=== PATIENT | female | born 1975 | race Caucasian/White ===

== ENCOUNTER 2024-07-03 09:55 | Observation (INO) | payer BC, SELFPAY ==
[~2024-07-03] VITALS: Ht 170.2 cm; Wt 72.4 kg
[2024-07-03] VITALS (7 sets, daily range): BP systolic 97–143; BP diastolic 79–104; TEMP 97–97.5; O2SAT 95–99
[~2024-07-03 09:55] MED LIST: ALLE180T33 PO; ARNICA PO; EMER1PAK30 PO; ESTROTEST PO; LR 1,000 ML IV SCH; MAGN200T PO; OMEP40CA4 PO; PHEN-239 PO; SUPER COLLAGEN PO; SUPETAB44 PO; SYNT88TA2 PO; [UNRECOGNIZED DRUG - CODE] PO; [UNRECOGNIZED DRUG - OTHER] PO; fentaNYL 100 MCG/2 ML INJECTION IV PRN
[2024-07-03] MEDS ORDERED: ONDANSETRON 4MG 2ML VIAL As Ordered ONE (10:14)
[2024-07-03] MEDS ORDERED: propofoL 200 MG/20 ML VIAL As Ordered ONE (10:14)
[2024-07-03] MEDS ORDERED: fentaNYL 250 MCG/5 ML INJECTION As Ordered ONE (10:14)
[2024-07-03] MEDS ORDERED: ACETAMINOPHEN 1000MG/100ML IV BAG As Ordered ONE (10:14)
[2024-07-03] MEDS ORDERED: LIDOCAINE 2% 100MG/5ML SDV (FOR ANES.) As Ordered ONE (10:14)
[2024-07-03] MEDS ORDERED: MIDAZOLAM INJ 2MG/2ML VIAL As Ordered ONE (10:14)
[2024-07-03] MEDS ORDERED: ROCURONIUM BROMIDE 50MG/5ML VIAL As Ordered ONE (10:14)
[2024-07-03] MEDS ORDERED: LR 1,000 ML IV SCH (10:50)
[2024-07-03] MEDS ORDERED: COLL1CAP PO (11:18)
[2024-07-03] MEDS ORDERED: ARNI20TI TD (11:18)
[2024-07-03] MEDS ORDERED: BACI1TAB20 PO (11:18)
[2024-07-03] MEDS ORDERED: MAGN400C2 PO (11:18)
[2024-07-03] MEDS ORDERED: HOME MED LIST COMPLETE! XX SCH (11:20)
[2024-07-03] MEDS: SCOPOLAMINE 1MG TRANSDERMAL PATCH TOP ONE (12:51)
[2024-07-03] MEDS: ceFAZolin SOD 2 GM in IV 1 EA IV ONE (13:36)
[2024-07-03] MEDS: HEPARIN SOD (PORCINE) 5000UNITS/ML 1ML VIAL/SYRINGE SQ ONE (13:37)
[2024-07-03] MEDS: EPINEPHrine INJ 1 MG/ML 1ML AMP As Ordered ONE (13:51)
[2024-07-03] MEDS: LIDOCAINE 1% MDV 20ML VIAL As Ordered ONE (13:51)
[2024-07-03] MEDS ORDERED: PHENYLephrine 500MCG 5ML (100MCG/ML) SYRINGE As Ordered ONE (13:54)
[2024-07-03] MEDS ORDERED: HYDROmorphone HCL 2MG/ML 1ML VIAL As Ordered ONE (14:31)
[2024-07-03] MEDS ORDERED: SUGAMMADEX SODIUM 500 MG/5 ML VIAL (BRIDION) As Ordered ONE (14:33)
[2024-07-03] MEDS ORDERED: LABETALOL 100MG/20ML VIAL As Ordered ONE (15:04)
[2024-07-03] MEDS: GENTAMICIN SULF 80MG/2ML VIAL As Ordered ONE (15:19)
[2024-07-03] MEDS ORDERED: dexmedeTOMIDine (4MCG/ML)200MCG/50ML BTL (PRECEDEX) As Ordered ONE (15:36)
[2024-07-03] MEDS ORDERED: traMADol 50 MG TAB PO PRN (18:00)
[2024-07-03] MEDS ORDERED: fentaNYL 100 MCG/2 ML INJECTION IV PRN (18:00)
[2024-07-03] MEDS ORDERED: PERCOCET 5MG/325MG TAB PO PRN (18:00)
[2024-07-03] MEDS ORDERED: MORPHINE 2 MG/ML 1ML VIAL IV PRN (18:00)
[2024-07-03] MEDS ORDERED: oxyCODONE 5MG TAB PO PRN (18:00)
[2024-07-03] MEDS: ONDANSETRON 4MG 2ML VIAL IV PRN (19:50)
[2024-07-03] MEDS: LR 1,000 ML IV SCH (20:17)
[2024-07-03] MEDS ORDERED: NALOXONE INJ 0.4MG/1ML VIAL As Ordered ONE (21:29)
[2024-07-03] MEDS: NALOXONE INJ 0.4MG/1ML VIAL IV STA (21:31)
[2024-07-03] MEDS: ceFAZolin SOD 2 GM in IV 1 EA IV SCH (22:27)
[2024-07-04] VITALS: BP 143/98; TEMP 96.8; O2SAT 97
[2024-07-04 01:00] VITALS: BP 144/98; TEMP 97.2; O2SAT 97
[2024-07-04 01:28] VITALS: BP 135/83; TEMP 98.3; O2SAT 97
[2024-07-04] MEDS: ONDANSETRON 4MG 2ML VIAL IV PRN (01:35)
[2024-07-04] MEDS: EXCEDRIN MIGRAINE TABLET PO ONE (02:45)
[2024-07-04 03:19] VITALS: BP 124/74; TEMP 98.1; O2SAT 100
[2024-07-04 05:47] LABS: HEMATOCRIT 40.4 % (36.0-47.0); HEMOGLOBIN 13.3 g/dl (12.0-15.5); MEAN CORPUSCULAR HGB CONC 32.9 g/dl (32.0-36.5); MEAN CORPUSCULAR VOLUME 94.2 fl (80.0-96.0); PLATELET COUNT, AUTOMATED 165 10^3/uL (150-450); RED BLOOD COUNT 4.29 10^6/uL (4.00-5.40); WHITE BLOOD COUNT 11.7 10^3/uL (4.0-10.0)
[2024-07-04 06:12] LABS: BLOOD UREA NITROGEN 15 MG/DL (9-23); CALCIUM LEVEL 7.4 MG/DL (8.5-10.1); CARBON DIOXIDE LEVEL 23 MMOL/L (20-31); CHLORIDE LEVEL 103 MMOL/L (98-107); CREATININE FOR GFR 0.83 MG/DL (0.55-1.30); GLOMERULAR FILTRATION RATE > 60.0 (>58); GLUCOSE, FASTING 122 MG/DL (60-100); POTASSIUM SERUM 3.8 MMOL/L (3.5-5.1); SODIUM LEVEL 138 MMOL/L (136-145)
[2024-07-04] MEDS: LEVOTHYROXINE 88MCG TABLET (0.088 MG) PO SCH (06:19)
[2024-07-04 08:20] VITALS: BP 129/72; TEMP 98.7; O2SAT 100
[2024-07-04] MEDS: FEXOFENADINE 60MG TAB PO SCH (08:53)
[2024-07-04] MEDS: ACETAMINOPHEN 325 MG TAB PO PRN (08:55)
[2024-07-04 11:49] VITALS: BP 128/69; TEMP 97.8; O2SAT 100
[2024-07-04] MEDS ORDERED: KETO10TAB PO (13:20)
[2024-07-04] MEDS ORDERED: OMEPRAZOLE 20MG CAP PO SCH (21:00)
== END 2024-07-04 14:21 | disposition home or self-care (01) ==
LOC: M SDC 09:55 → M RR INP 15:55 → M MS5PR 20:48 → M PCU 07-04 01:14
PROVIDERS: ADMIT Plastic Surgery Surgery of the Hand; ATTEND Plastic Surgery Surgery of the Hand
DX: M79.3 Panniculitis, unspecified (principal); E88.1 Lipodystrophy, not elsewhere classified; G43.909 Migraine, unspecified, not intractable, without status migrainosus; K21.9 Gastro-esophageal reflux disease without esophagitis; E03.9 Hypothyroidism, unspecified; Z88.5 Allergy status to narcotic agent; Z79.899 Other long term (current) drug therapy
CPT/HCPCS: 15847; 36415; 80048; 85027; 88300; 96365; 96366; 96375; C9290; J0131; J0171; J0665; J0690; J1100; J1171; J1580; J1920; J2250; J2310; J2371; J2405; J3010